=== PATIENT | female | born 1980 ===

== ENCOUNTER 2021-03-25 15:43 | Emergency (ER) | payer OTHER ==
[2021-03-25 15:52] VITALS: BP 143/104
[2021-03-25 16:02] LABS: BILIRUBIN,URINE NEGATIVE (NEGATIVE); GLUCOSE, URINE (UA) NEGATIVE (NEGATIVE); KETONES,URINE (UA) NEGATIVE (NEGATIVE); LEUKOCYTE ESTERASE, URINE NEGATIVE (NEGATIVE); NITRITE,URINE NEGATIVE (NEGATIVE); OCCULT BLOOD,URINE NEGATIVE (NEGATIVE); PROTEIN,URINE NEGATIVE (NEGATIVE); UROBILINOGEN,URINE 0.2 (NORMAL) E.U./dL (NORMAL)
[2021-03-25 16:08] LABS: CLARITY,URINE CLEAR (CLEAR); HCG UR QUAL NEGATIVE
[2021-03-25] MEDS ORDERED: predniSONE 20 MG TABLET PO STA (16:47)
[2021-03-25] MEDS ORDERED: LIDOCAINE OINTMENT 5% 35.44 GM TUBE TOP STA (16:47)
--- NOTE | 2021-03-25 16:57 | ED Physician Documentation ---
PD HPI FEMALE - Stated complaint Stated Complaint: FEM - Chief complaint Chief Complaint: UTI - History obtained from History obtained from: Patient - History of Present Illness Timing - onset: How many days ago (3) Timing - duration: Days (3) Timing - details: Gradual onset Pain level max: 4, 6 Pain level max: 4 Associated symptoms: Vaginal pain. No: Fever, Abdominal pain, Back pain, Vaginal discharge Contributing factors: No: , control, Oral contraceptive, Depo - Additional information Additional information: Patient is a 40-year-old female who complains of vaginal pain for the past 3 to 4 days. She states that it started after Her and her partner were utilizing a sex toy with a condom over it. They were using silicone lubricant. She states that now she has increasing discomfort and pain. Denies any vaginal discharge. States that it feels burning. Nothing makes it better or worse. Similar symptoms after using condoms in the past. Sister has a latex allergy. Review of Systems Constitutional: denies: Fever, Chills Cardiac: denies: Chest pain / pressure Respiratory: denies: Dyspnea, Cough GI: denies: Vomiting, Diarrhea : reports: Dysuria. denies: Frequency, Hesitancy Skin: denies: Rash PD PAST MEDICAL HISTORY - Past Medical History Past Medical History: Yes Psych: Depression, Anxiety - Past Surgical History Past Surgical History: No - Present Medications Home Medications: Ambulatory Orders Medication Instructions Recorded Confirmed Bupropion HCl [Wellbutrin Xl] 300 mg PO DAILY 03/25/21 03/25/21 Fluconazole [Diflucan] 1 tablet PO ONCE 1 Days #1 tablet 03/25/21 Lidocaine Ointment 5% [Xylocaine 1 applic TOP QID PRN #35.44 gm 03/25/21 Ointment 5%] metroNIDAZOLE [Flagyl] 500 mg PO BID #14 tablet 03/25/21 predniSONE [Deltasone] 40 mg PO DAILY #10 tablet 03/25/21 - Allergies Allergies/Adverse Reactions: Allergies Allergy/AdvReac Type Severity Reaction Status Date / Time ceftriaxone [From Rocephin] Allergy Rash Verified 03/25/21 15:52 - Living Situation Living Situation: reports: With family Living Arrangement: reports: At home - Social History Does the pt have substance abuse?: No PD ED PE NORMAL - Vitals Vital signs reviewed: Yes - General General: Alert and oriented X 3, No acute distress, Well developed/nourished - HEENT HEENT: Moist mucous membranes - Neck Neck: Supple, no meningeal sign - Cardiac Cardiac: RRR, Strong equal pulses - Respiratory Respiratory: No respiratory distress, Clear bilaterally - Abdomen Abdomen: Soft, Non tender, Non distended - Female Female : Pt declined - Derm Derm: Warm and dry - Neuro Neuro: Alert and oriented X 3 - Psych Psych: Normal mood, Normal affect Results - Vitals Vitals: Oxygen O2 Source Room air - Labs Labs: Laboratory Tests 03/25/21 03/25/21 15:55 16:15 Urine Color YELLOW Urine Clarity CLEAR Urine pH 6.0 Ur Specific [place] >=1.030 H Urine Protein NEGATIVE Urine Glucose (UA) NEGATIVE Urine Ketones NEGATIVE Urine Occult Blood NEGATIVE Urine Nitrite NEGATIVE Urine Bilirubin NEGATIVE Urine Urobilinogen 0.2 (NORMAL) Ur Leukocyte Esterase NEGATIVE Ur Microscopic Review NOT INDICATED Urine Culture Comments NOT INDICATED Urine HCG, Qual NEGATIVE C. glabrata (PCR) NEGATIVE C. krusei (PCR) NEGATIVE Milka species DNA POSITIVE A T. vaginalis (PCR) NEGATIVE Bact Vaginosis (PCR) POSITIVE A PD MEDICAL DECISION MAKING - ED course Complexity details: reviewed results, re-evaluated patient, considered differential, d/w patient ED course: Patient with what sounds like a latex allergy. Will place on steroids for this. A vaginal swab was also performed and was sent to the lab. When this returned, it was positive for Milka and bacterial vaginosis. Patient will be treated with Diflucan and Flagyl. Patient is well-appearing, nontoxic. Declines a pelvic exam, will return for an exam or follow-up with her doctor if her symptoms persist. No STD exposure. Patient counseled regarding signs and symptoms for which I believe and urgent re-evaluation would be necessary. Patient with good understanding of and agreement to plan and is comfortable phill g home at this time This document was made in part using voice recognition software. While efforts are made to proofread this document, sound alike and grammatical errors may occur. Departure - Departure Disposition: 01 Home, Self Care Clinical Impression: Latex allergy, Vaginal pain, Bacterial vaginitis, Vaginal candidiasis Condition: Good Instructions: ED Pelvic Pain [facility] Follow-Up: your,doctor as needed [Other] Prescriptions: predniSONE [Deltasone] 40 mg PO DAILY #10 tablet Fluconazole [Diflucan] 1 tablet PO ONCE 1 Days #1 tablet metroNIDAZOLE [Flagyl] 500 mg PO BID #14 tablet Lidocaine Ointment 5% [Xylocaine Ointment 5%] 1 applic TOP QID PRN #35.44 gm PRN Reason: pain Comments: It appears likely that you are having an allergic reaction to the latex, however this could be due to a reaction between the latex or silicone and a silicone lubricant. Your prescriptions were sent to [facility] in [place]. This should improve over the next few days. Return if you worsen If the vaginal swab shows an infection a prescription will be sent to [facility] in [place] and we will call you. Discharge Date/Time: 03/25/21 17:02
[2021-03-25 18:12] LABS: BACTERIAL VAGINOSIS DNA POSITIVE (NEGATIVE); CANDIDA GLABRATA DNA NEGATIVE (NEGATIVE); CANDIDA GROUP DNA POSITIVE (NEGATIVE); CANDIDA KRUSEI DNA NEGATIVE (NEGATIVE); TRICHOMONAS VAGINALIS DNA NEGATIVE (NEGATIVE)
== END 2021-03-25 17:02 | disposition home or self-care (01) ==
LOC: ED 15:43
DX: T65.811A Toxic effect of latex, accidental (unintentional), initial encounter (principal); N76.0 Acute vaginitis; B37.3 Candidiasis of vulva and vagina
CPT/HCPCS: 81003; 81025; 87481; 87661; 87801; 99283; 99284; A9270; J7512; 81001; 87086

== ENCOUNTER 2022-02-19 08:42 | Emergency (ER) | payer OTHER ==
[2022-02-19 08:50] VITALS: BP 169/101
--- NOTE | 2022-02-19 08:58 | ED Physician Documentation ---
PD HPI UPPER EXT INJURY - Stated complaint Stated Complaint: LT TOE INJ - Chief complaint Chief Complaint: Trauma Ext - History obtained from History obtained from: Patient (She tripped over her own feet last night and injured her left great toenail and toe. No other injuries. No possibility of .) Review of Systems Constitutional: reports: Reviewed and negative Eyes: reports: Reviewed and negative Respiratory: reports: Reviewed and negative PD PAST MEDICAL HISTORY - Past Medical History Psych: Depression, Anxiety - Past Surgical History Past Surgical History: No - Present Medications Home Medications: Ambulatory Orders Medication Instructions Recorded Confirmed Bupropion HCl [Wellbutrin Xl] 300 mg PO DAILY 03/25/21 02/19/22 Telmisartan 40 mg PO DAILY 02/19/22 02/19/22 - Allergies Allergies/Adverse Reactions: Allergies Allergy/AdvReac Type Severity Reaction Status Date / Time ceftriaxone [From Rocephin] Allergy Rash Verified 02/19/22 08:47 - Social History Does the pt have substance abuse?: No PD ED PE NORMAL - Vitals Vital signs reviewed: Yes - General General: Alert and oriented X 3, No acute distress - Derm Derm: Normal color, Warm and dry - Extremities Extremities: Other (The entirety of the left great toe is tender and bruised and the nail looks at least partially avulsed, unable to assess subungual hematoma initially due to nail sl[place].) - Neuro Neuro: Alert and oriented X 3, Normal speech Results - Vitals Vitals: Vital Signs - 24 hr 02/19/22 08:47 Temperature 36.5 C Heart Rate 82 Respiratory 16 Rate Blood Pressure 169/101 H O2 Saturation 100 Oxygen O2 Source Room air - Rads (name of study) Toe XR Radiology: EMP read contemporaneously (Avulsion fracture of the first distal phalanx) Procedures - General procedure General procedure: After the administration of a digital block with excellent anesthesia the first left toenail was trephinated using electrocautery with return of blood. Then she was oren taped and placed in a fracture shoe. - Regional nerve block Nerve block site: Digital - note digit(s) (First left toe) Right / left: Left Nerve block anesthesia: Marcaine 0.5% Nerve block aftercare: Excellent anesthesia Departure - Departure Disposition: 01 Home, Self Care Clinical Impression: Fracture of left great toe Qualifiers: Encounter type: initial encounter Fracture type: closed Phalanx: distal Fracture alignment: nondisplaced Qualified Code(s): S92.425A - Nondisplaced fracture of distal phalanx of left great toe, initial encounter for closed fracture Subungual hematoma of great toe of left foot Qualifiers: Encounter type: initial encounter Qualified Code(s): S90.212A - Contusion of left great toe with damage to nail, initial encounter Condition: Good Record reviewed to determine appropriate education?: Yes Instructions: ED Fx Toe Closed Comments: Tylenol and/or ibuprofen as needed for pain, keep it oren taped and in the fracture shoe as shown. Return for new or worsening symptoms. Follow-up with the orthopedic surgeon, call today or tomorrow for next available appointment for recheck.
--- NOTE | 2022-02-19 09:20 | XRAY Report ---
PROCEDURE: Toe(s) LT INDICATIONS: toe inj TECHNIQUE: 3 views of the first toe(s) acquired. COMPARISON: None FINDINGS: Bones: There is a curvilinear ossification at the base of the distal first phalanx. No suspicious bon y lesions. Soft tissues: No suspicious soft tissue densities. IMPRESSION: Curvilinear ossification at the first distal phalanx base suspicious for avulsion fracture. Reviewed by: Maribel Malik MD on 02/19/2022 9:18 AM PDT Approved by: Maribel Malik MD on 02/19/2022 9:18 AM PDT Station ID: [id number]
== END 2022-02-19 09:36 | disposition home or self-care (01) ==
LOC: ED 08:42
DX: S92.425A Nondisplaced fracture of distal phalanx of left great toe, initial encounter for closed fracture (principal); S90.212A Contusion of left great toe with damage to nail, initial encounter; W18.40XA Slipping, tripping and stumbling without falling, unspecified, initial encounter
CPT/HCPCS: 11740; 73660; 99282; 99283

== ENCOUNTER 2022-03-25 08:00 | Outpatient (CLI) | payer OTHER ==
--- NOTE | 2022-03-25 16:03 | XRAY Report ---
PROCEDURE: Toe(s) LT INDICATIONS: LEFT 1ST TOE FRACTURE TECHNIQUE: 3 views of the left first toe(s) acquired. COMPARISON: 03/05/2022 FINDINGS: Bones: Again noted is slightly displaced intra-articular fracture involving dorsal and medial aspect of first distal phalangeal base with dorsally displaced fractured fragment. No new fracture or disloc ation. No suspicious bony lesions. Soft tissues: No suspicious soft tissue densities. IMPRESSION: Slightly displaced intra-articular fracture involving dorsal and medial aspect of first distal phalan geal base unchanged from prior study. No new fracture or dislocation. Reviewed by: Dylon Vanessa MD on 03/25/2022 4:02 PM PDT Approved by: Dylon Vanessa MD on 03/25/2022 4:02 PM PDT Station ID: [id number]
== END 2022-03-25 23:59 | disposition home or self-care (01) ==
LOC: DI.WOS 08:00
PROVIDERS: ATTEND Orthopaedic Surgery
DX: S92.422D Displaced fracture of distal phalanx of left great toe, subsequent encounter for fracture with routine healing (principal)